=== PATIENT | female | born 1970 | race Caucasian/White ===

== ENCOUNTER → 2016-07-05 | Outpatient (CLI) | payer MEDICAID | LOC: BMCIMAGING 13:49 | PROVIDERS: ATTEND Family Medicine | DX: Z12.39 Encounter for other screening for malignant neoplasm of breast (principal); N63 Unspecified lump in breast; M54.9 Dorsalgia, unspecified; G89.4 Chronic pain syndrome; F33.41 Major depressive disorder, recurrent, in partial remission | CPT/HCPCS: G0204 ==

== ENCOUNTER → 2016-07-12 | Outpatient (CLI) | payer MEDICAID | LOC: FIMAGING 11:58 | PROVIDERS: ATTEND Family Medicine | DX: T85.49XA Other mechanical complication of breast prosthesis and implant, initial encounter (principal) | CPT/HCPCS: 0159T; 77059; C8907 ==

== ENCOUNTER → 2017-04-10 | Outpatient (CLI) | payer MEDICAID ==
[~2017-04-10] MED LIST: GADOBUTROL 10 ML VIAL IVP ONE
== END ==
LOC: FIMAGING 14:24
PROVIDERS: ATTEND Urology
DX: N75.0 Cyst of Bartholin's gland (principal)
CPT/HCPCS: A9585

== ENCOUNTER → 2017-04-12 | Outpatient (CLI) | payer MEDICAID | LOC: CIMAGING 13:00 | PROVIDERS: ATTEND Obstetrics & Gynecology | DX: N64.4 Mastodynia (principal) | CPT/HCPCS: 76641-PO ==

== ENCOUNTER 2017-09-25 19:44 | Emergency (ER) | payer MEDICAID ==
[2017-09-25] MEDS ORDERED: PENICILLIN VK 500 MG TAB PO ONE (20:10)
--- NOTE | 2017-09-25 20:42 | EDPHY ---
H & P Time Seen by Provider: 09/25/17 19:55 HPI/ROS: This patient complains of dental pain to the left upper premolar a 4 days duration increasing in intensity to current 8/10 despite ibuprofen Tylenol and maximal doses prior to arrival. She reports that the pain spreads from the affected dental area toward the ear and the left side of her face. She notes associated fatigue. She is also worried about easy bruising over the past couple months is concerned that she may have leukemia because of this and her fatigue and nausea and she requests a CBC. She came here by private vehicle for evaluation of the symptoms. ROS: Constitutional: No fevers. Positive generalized fatigue. HEENT: No URI symptoms. No facial swelling associated with this. No hearing changes or drainage from the ears. Neuro: No facial numbness or tingling. No confusion. She has had intermittent headaches recently but none currently. Pulmonary: No cough shortness of breath Hematology: Easy bruising for 6 months. : Last menstrual period was normal timing that she has had some mild vaginal spotting in between. Integumentary: No rashes. 10 point ROS is otherwise negative. Past Medical/Surgical History: Otherwise healthy Social History: She uses nicotine in the form of a vaporizer. No drug use No alcohol Single mother of a 12 an 8-year-old Smoking Status: Never smoked Physical Exam: General Appearance: Alert, no distress. Eyes: Pupils equal and round no pallor or injection. ENT, Mouth: Mucous membranes moist. Dental exam reveals tenderness to percussion to the left upper premolar with adjacent mild gingival swelling but no fluctuance. Overall her dentition appears to be in good condition. There is no submental swelling or other facial swelling. Ears: Clear bilaterally Respiratory: There are no retractions, lungs are clear to auscultation. Cardiovascular: Regular rate and rhythm. No murmur gallop or rub Gastrointestinal: Abdomen is soft and nontender, no masses, bowel sounds normal. Neurological: GCS 15 with no focal deficits. Skin: Warm and dry, no rashes. Patient has ecchymosis on her right leg consistent with bruising-subacute no other significant bruising is appreciated. Musculoskeletal: Neck is supple nontender. Extremities are symmetrical, full range of motion. Psychiatric: Mild anxiety. Otherwise mood and affect are normal DIFFERENTIAL DIAGNOSIS: After history and physical exam differential diagnosis was considered for periodontitis, apical abscess, bruising, rule out lymphoma leukemia or thrombocytopenia Constitutional: Initial Vital Signs Temperature (C) 36.6 C 09/25/17 19:52 Heart Rate 78 09/25/17 19:52 Respiratory Rate 18 09/25/17 19:52 Blood Pressure 135/75 H 09/25/17 19:52 O2 Sat (%) 97 09/25/17 19:52 O2 Delivery Mode Room Air Allergies/Adverse Reactions: Sulfa (Sulfonamide Antibiotics) Allergy (Unknown, Verified 01/21/09 17:59) Hives Home Medications: Medication Instructions Recorded Multivit 10/04/09 Prilosec 10/09/10 Levothyroxine [Synthroid 25 mcg 25 mcg PO DAILY 01/14/12 (RX)] Meclizine HCl [ANTIVERT] 25 mg PO Q6 PRN #10 tab 01/14/12 Venlafaxine HCl [Effexor] 25 mg PO DAILY 01/14/12 Penicillin V Potassium [Pen Vk 500 mg PO TID #30 tab 09/25/17 500mg (*)] MDM/Departure - MDM Procedures: Dental nerve block: After verbal consent and peroxide cleaning I injected a 50 50 mix of 2% lidocaine and 0.5% Marcaine with a 27 gauge needle to the buccal gingival fold intraorally adjacent to the affected tooth with relief of discomfort -3 mL. There were no complications. Patient tolerated this well. ED Course/Re-evaluation: Labs: CBC reveals a white blood cell count of 10.6, H&H of 13 and 41 and platelets of 335. I think the patient's CBC is commensurate with her periodontitis currently. I do not suspect of lumbar leukemia in this patient based on clinical findings and CBC at this time. - Depart Disposition: Home, Routine, Self-Care Clinical Impression: Periodontitis, Easy bruising Clinical Impression: (Ruled Out): Bruising Condition: Good Instructions: Toothache (ED) Additional Instructions: Diagnoses: 1. Dental pain/periodontitis 2. Easy bruising You're CBC tonight is consistent with mild dental infection. At this time it did not suspected leukemia or lymphoma. Plan: Continue ibuprofen Tylenol for pain Penicillin antibiotic 3 times a day as prescribed Call your dentist arrange follow-up for further evaluation for sometime within the next 3-10 days. Follow up with Dr. Lantigua for any ongoing symptoms Prescriptions: Penicillin V Potassium [Pen Vk 500mg (*)] 500 mg PO TID #30 tab Referrals: Matilde Lantigua MD [Primary Care Provider] - As per Instructions
[2017-09-25 21:09] VITALS: BP 122/62
== END 2017-09-25 21:06 | disposition home or self-care (01) ==
LOC: CED 19:44
PROC: 3E0X3BZ Introduction of Anesthetic Agent into Cranial Nerves, Percutaneous Approach (ICD-10-PCS; principal; 2017-09-25)
DX: K05.6 Periodontal disease, unspecified (principal)

== ENCOUNTER 2017-10-08 16:57 | Inpatient (IN) | payer MEDICAID ==
--- NOTE | 2017-10-08 17:08 | EDPHY ---
H & P Stated Complaint: abd/flank pain Time Seen by Provider: 10/08/17 17:07 HPI/ROS: CHIEF COMPLAINT: Abdominal pain, dyspnea, dark urine HISTORY OF PRESENT ILLNESS: The patient presents to the ED with abdominal pain , dyspnea and hematuria. The patient reported she developed epigastric pain last night which radiated to her back. She had nausea without vomiting. Her pain persisted throughout the day and she reports she has developed dark urine. She denies any antecedent dysuria, fever or respiratory symptoms. She has no history of asymmetric calf pain or swelling. The patient has no history of nephro or ureterolithiasis. The patient reports her pain is moderate in nature. It is primarily in her epigastrium and right upper quadrant. REVIEW OF SYSTEMS: A comprehensive 10 point review of systems is otherwise negative aside from elements mentioned in the history of present illness. Source: Patient - Personal History LMP (Females 10-55): 15-21 Days Ago Current Tetanus/Diphtheria Vaccine: No Current Tetanus Diphtheria and Acellular Pertussis (TDAP): No - Medical/Surgical History Hx Asthma: No Hx Chronic Respiratory Disease: No Hx Diabetes: No Hx Cardiac Disease: No Hx Renal Disease: No Hx Cirrhosis: No Hx Alcoholism: No Hx HIV/AIDS: No Hx Splenectomy or Spleen Trauma: No Other PMH: Urethra gland removed, - Social History Smoking Status: Former smoker - Physical Exam Exam: General Appearance: Alert, uncomfortable secondary to pain Eyes: Pupils equal and round no pallor or injection ENT, Mouth: Mucous membranes moist Respiratory: There are no retractions, lungs are clear to auscultation Cardiovascular: Regular rate and rhythm Gastrointestinal: Tenderness to palpation right upper quadrant, right CVA tenderness, normal bowel sounds Neurological: 5/5 strength all 4 extremities Skin: Warm and dry, no rashes Musculoskeletal: Neck is supple nontender Extremities: symmetrical, full range of motion Psychiatric: Patient is oriented X 3, there is no agitation Constitutional: Initial Vital Signs Temperature (C) 36.9 C 10/08/17 17:02 Heart Rate 115 H 10/08/17 17:02 Respiratory Rate 16 10/08/17 17:02 Blood Pressure 136/75 H 10/08/17 17:02 O2 Sat (%) 96 10/08/17 17:02 O2 Delivery Mode Oxymizer O2 (L/minute) 2 Allergies/Adverse Reactions: Sulfa (Sulfonamide Antibiotics) Allergy (Unknown, Verified 10/08/17 17:01) Hives Home Medications: Medication Instructions Recorded ALPRAZolam [Alprazolam] 1 mg PO TID 10/08/17 Escitalopram Oxalate [Lexapro] 20 mg PO DAILY 10/08/17 Hydrocodone/Acetaminophen [[place] 1 - 2 tab PO Q4H PRN 10/08/17 5/325 (*)] Levothyroxine [Synthroid 100 mcg 100 mcg PO DAILY06 10/08/17 (*)] Naloxone HCl [Narcan] 4 mg NS AD 10/08/17 Norgestimate-Ethinyl Estradiol 1 each PO DAILY 10/08/17 [Sprintec] Omeprazole 20 mg PO DAILY 10/08/17 Propranolol HCl [Inderal 20mg (*)] 20 mg PO TID 10/08/17 Sucralfate [Carafate 1gm/10ml Oral 1 gm PO QID 10/08/17 Liquid (*)] oxyCODONE IR [Oxycodone Ir (*)] 7.5 mg PO QID 10/08/17 oxyCODONE IR [Oxycodone Ir (*)] 15 mg PO BID 10/08/17 oxyCODONE IR [Oxycodone Ir (*)] 20 mg PO Q6H 10/08/17 traZODone [traZODONE 50MG (*)] 50 - 100 mg PO HS 10/08/17 Medical Decision Making - Diagnostics Imaging Results: Imaging Impressions Abdomen Ultrasound 10/08/17 17:32 Impression: 1. Mild coarsening of the hepatic echotexture, which is nonspecific and could be related to some regional steatosis, or hepatocellular dysfunction of other etiology. 2. While there is no intrahepatic bile duct dilatation, there is mild prominence of the common bile duct, of uncertain etiology. There is no choledocholithiasis observed. 3. There is a nonspecific 1.6 cm peripancreatic-joe hepatis lymph node. Contrast-enhanced CT imaging may be of benefit in further evaluation, as clinically directed. Findings were discussed with Hilario Amaral MD at 18:40, on 10/08/2017. ED Course/Re-evaluation: The patient presents to the ED with acute back pain, hematuria and mild dyspnea. The patient was placed on a monitor. She is not hypoxic and is noted to be hemodynamically stable. An IV was established. She received 1 L of normal saline, Zofran and IV fentanyl. The patient is noted to have elevated bilirubin and a transaminitis. Right upper quadrant ultrasound demonstrates a dilated common bile duct. Consultation is made with Dr. Vallecillo from General surgery. The patient will be admitted for choledocholithiasis. She received Unasyn in the emergency department. I re-evaluated the patient at 6:30 p.m.. She is still having pain. Additional pain medications have been ordered. She informs me she has been on a fairly high dose of outpatient narcotic medications for chronic pain and is in the process of weaning those medications. The patient was given Toradol an additional dose of Dilaudid. She will be admitted to the surgical service this evening for further evaluation of her condition. Differential Diagnosis: Differential diagnosis considered includes cholecystitis, choledocholithiasis, nephrolithiasis, ureterolithiasis, pyelonephritis - Data Points Laboratory Results: Laboratory Results 10/08/17 17:25 10/08/17 17:25 10/08/17 10/08/17 10/08/17 17:25 17:25 17:25 WBC 13.10 10^3/uL H 10^3/uL (3.80-9.50) RBC 5.02 10^6/uL 10^6/uL (4.18-5.33) Hgb 14.5 g/dL g/dL (12.6-16.3) Hct 43.2 % % (38.0-47.0) MCV 86.1 fL fL (81.5-99.8) MCH 28.9 pg pg (27.9-34.1) MCHC 33.6 g/dL g/dL (32.4-36.7) RDW 13.2 % % (11.5-15.2) Plt Count 349 10^3/uL 10^3/uL (150-400) MPV 10.2 fL fL (8.7-11.7) Neut % (Auto) 82.1 % H % (39.3-74.2) Lymph % (Auto) 11.0 % L % (15.0-45.0) [place] % (Auto) 5.4 % % (4.5-13.0) Eos % (Auto) 0.8 % % (0.6-7.6) Baso % (Auto) 0.2 % L % (0.3-1.7) Nucleat RBC Rel Count 0.0 % % (0.0-0.2) Absolute Neuts (auto) 10.77 10^3/uL H 10^3/uL (1.70-6.50) Absolute Lymphs (auto) 1.44 10^3/uL 10^3/uL (1.00-3.00) Absolute Monos (auto) 0.71 10^3/uL 10^3/uL (0.30-0.80) Absolute Eos (auto) 0.10 10^3/uL 10^3/uL (0.03-0.40) Absolute Basos (auto) 0.02 10^3/uL 10^3/uL (0.02-0.10) Absolute Nucleated RBC 0.00 10^3/uL 10^3/uL (0-0.01) Immature Gran % 0.5 % % (0.0-1.1) Immature Gran # 0.06 10^3/uL 10^3/uL (0.00-0.10) Sodium 136 mEq/L mEq/L (135-145) Potassium 4.2 mEq/L mEq/L (3.3-5.0) Chloride 103 mEq/L mEq/L (97-110) Carbon Dioxide 24 mEq/l mEq/l (22-31) Anion Gap 9 mEq/L mEq/L (8-16) BUN 14 mg/dL mg/dL (7-23) Creatinine 0.8 mg/dL mg/dL (0.6-1.0) Estimated GFR > 60 Glucose 133 mg/dL H mg/dL (70-100) Calcium 10.0 mg/dL mg/dL (8.5-10.4) Total Bilirubin 5.1 mg/dL H mg/dL (0.1-1.4) Conjugated Bilirubin 3.0 mg/dL H mg/dL (0.0-0.5) Unconjugated Bilirubin 2.1 mg/dL H mg/dL (0.0-1.1) AST 319 IU/L H IU/L (14-46) ALT 220 IU/L H IU/L (9-52) Alkaline Phosphatase 154 IU/L H IU/L (38-126) Total Protein 7.9 g/dL g/dL (6.3-8.2) Albumin 4.5 g/dL g/dL (3.5-5.0) Lipase 58 IU/L IU/L (23-300) Beta HCG, Qual NEGATIVE Urine Color Urine Appearance Urine pH Ur Specific [place] Urine Protein Urine Ketones Urine Blood Urine Nitrate Urine Bilirubin Urine Urobilinogen Ur Leukocyte Esterase Urine RBC Urine WBC Ur Epithelial Cells Urine Mucus Urine Glucose 10/08/17 17:10 WBC RBC Hgb Hct MCV MCH MCHC RDW Plt Count MPV Neut % (Auto) Lymph % (Auto) [place] % (Auto) Eos % (Auto) Baso % (Auto) Nucleat RBC Rel Count Absolute Neuts (auto) Absolute Lymphs (auto) Absolute Monos (auto) Absolute Eos (auto) Absolute Basos (auto) Absolute Nucleated RBC Immature Gran % Immature Gran # Sodium Potassium Chloride Carbon Dioxide Anion Gap BUN Creatinine Estimated GFR Glucose Calcium Total Bilirubin Conjugated Bilirubin Unconjugated Bilirubin AST ALT Alkaline Phosphatase Total Protein Albumin Lipase Beta HCG, Qual Urine Color ORA Urine Appearance CLEAR Urine pH 6.0 (5.0-7.5) Ur Specific [place] 1.016 (1.002-1.030) Urine Protein NEGATIVE (NEGATIVE) Urine Ketones NEGATIVE (NEGATIVE) Urine Blood 1+ H (NEGATIVE) Urine Nitrate NEGATIVE (NEGATIVE) Urine Bilirubin POSITIVE H (NEGATIVE) Urine Urobilinogen 4.0 EU H EU (0.2-1.0) Ur Leukocyte Esterase TRACE H (NEGATIVE) Urine RBC 5-10 /hpf H /hpf (0-3) Urine WBC 3-5 /hpf H /hpf (0-3) Ur Epithelial Cells 2+ /lpf H /lpf (NONE-1+) Urine Mucus TRACE /lpf /lpf (NONE-1+) Urine Glucose NEGATIVE (NEGATIVE) Medications Given: Discontinued Medications Fentanyl (Sublimaze) 100 mcg IVP EDNOW ONE Stop: 10/08/17 17:24 Last Admin: 10/08/17 17:33 Dose: 100 mcg Hydromorphone HCl (Dilaudid) 1 mg IVP EDNOW ONE Stop: 10/08/17 18:41 Last Admin: 10/08/17 18:43 Dose: 1 mg Sodium Chloride (Ns) 1,000 mls @ 0 mls/hr IV EDNOW ONE; Wide Open PRN Reason: Protocol Stop: 10/08/17 17:24 Last Admin: 10/08/17 17:32 Dose: 1,000 mls Ondansetron HCl (Zofran) 4 mg IVP EDNOW ONE Stop: 10/08/17 17:24 Last Admin: 10/08/17 17:33 Dose: 4 mg Departure - Departure Disposition: [facility] Clinical Impression: Choledocholithiasis Condition: Fair
[2017-10-08] MEDS ORDERED: fentaNYL 100 MCG/2 ML INJ IVP ONE (17:23)
[2017-10-08] MEDS ORDERED: NS 1,000 ML IV ONE (17:23)
[2017-10-08] MEDS ORDERED: ONDANSETRON 4 MG/2 ML VIAL IVP ONE (17:23)
[2017-10-08 17:40] LABS: PLATELET COUNT 349 10^3/uL (150-400)
[2017-10-08] MEDS ORDERED: AMPICILLIN/SULBACTAM 3 GM in NS 100 ML IV ONE (18:32)
[2017-10-08] MEDS ORDERED: HYDROmorphONE/DILAUDID 2 MG/ML INJ IVP ONE (18:40)
[2017-10-08] MEDS ORDERED: KETOROLAC 15 MG/1 ML SDV IVP ONE (18:45)
[2017-10-08] MEDS ORDERED: ONDANSETRON 4 MG/2 ML VIAL IVP PRN (19:20)
[2017-10-08] MEDS ORDERED: TEMAZEPAM 15 MG CAP PO PRN (19:20)
--- NOTE | 2017-10-08 19:28 | PDGENHP ---
History and Physical - Chief Complaint Abdominal pain - History of Present Illness This is a 47-year-old woman with history of chronic pain on 110 mg of oxycodone daily who presents with epigastric pain radiating to the back. This began at 11 o'clock suddenly last night. She was unable to find a comfortable position the pain then radiated straight through toward her back. She was unable to take deep breaths due to the pain. She then dark urine consistent with urobilia. She presented to the emergency room for evaluation and management . Ultrasound of the abdomen and pelvis showed a 7.4 mm common bile duct but minimal burden of stone disease. Laboratory studies showed elevation of bilirubin direct indirect and total as well as elevation of transaminases and alkaline phosphatase. Lipase was normal. Beta HCG was also normal. Given her clinical picture this is most likely consistent with choledocholithiasis History Information - Allergies/Home Medication List Allergies/Adverse Reactions: Sulfa (Sulfonamide Antibiotics) Allergy (Unknown, Verified 10/08/17 19:12) Hives Home Medications: ALPRAZolam [Alprazolam] 1 mg PO TID PRN 10/08/17 [Last Taken Unknown] Escitalopram Oxalate [Lexapro] 20 mg PO DAILY 10/08/17 [Last Taken 10/07/17] Lactobacillus Acidophilus [Probiotic] 1 each PO DAILY 10/08/17 [Last Taken 10/07] Multivitamins [Multivitamin (*)] 1 each PO DAILY 10/08/17 [Last Taken 10/07/17] [place]-3 Fatty Acids [Fish Oil 1000 mg (*)] 1,000 mg PO DAILY 10/08/17 [Last Taken 10/07/17] Vitamin B Complex [Vitamin B Complex (OTC)] 1 each PO DAILY 10/08/17 [Last Taken 10/07/17] oxyCODONE IR [Oxycodone Ir (*)] 7.5 mg PO QID 10/08/17 [Last Taken 10/07/17] oxyCODONE IR [Oxycodone Ir (*)] 20 mg PO QID 10/08/17 [Last Taken 10/07/17] traZODone [traZODONE 50MG (*)] 50 mg PO HS 10/08/17 [Last Taken 10/07/17] I have personally reviewed and updated: family history, medical history, social history, surgical history - Past Medical History fibromyalgia - Surgical History Additional surgical history: Tubal ligation. Colonoscopy and upper endoscopy last week.Skein cystectomy - Family History Positive for: non-pertinent - Social History Smoking Status: Former smoker Review of Systems Review of Systems: ROS: 10pt was reviewed & negative except for what was stated in HPI & below Constitutional: Reports: malaise EENMT: Reports: no symptoms Cardiac: Reports: no symptoms Respiratory: Reports: no symptoms Gastrointestinal: Reports: abdominal pain, constipation Genitourinary: Reports: dysuria Skin: Reports: change in hair/nails Neurological: Reports: anxiety Hematologic/Lymphatic: Reports: easy bruising Physical Exam Physical Exam: Alert oriented In abdominal pain with distress from this. Sclerae anicteric pupils equal No JVD no thyromegaly trachea midline Lungs clear bilaterally Heart regular rate and rhythm Abdomen soft mildly distended. Mid epigastric tender. No peritoneal signs. infraumbilical scar. no hepatosplenomegaly Extremities without edema 2+ over 2+ distal pulses Skin warm and dry No rashes Normal affect Nonfocal neurologic exam Temp Pulse Resp BP Pulse Ox 36.6 C 67 15 100/59 L 98 10/08/17 18:00 10/08/17 18:00 10/08/17 18:00 10/08/17 18:00 10/08/17 18:14 Lab Data & Imaging Review 10/08/17 17:25 10/08/17 17:25 WBC 13.10 10^3/uL (3.80-9.50) H 10/08/17 17:25 RBC 5.02 10^6/uL (4.18-5.33) 10/08/17 17:25 Hgb 14.5 g/dL (12.6-16.3) 10/08/17 17:25 Hct 43.2 % (38.0-47.0) 10/08/17 17:25 MCV 86.1 fL (81.5-99.8) 10/08/17 17:25 MCH 28.9 pg (27.9-34.1) 10/08/17 17:25 MCHC 33.6 g/dL (32.4-36.7) 10/08/17 17:25 RDW 13.2 % (11.5-15.2) 10/08/17 17:25 Plt Count 349 10^3/uL (150-400) 10/08/17 17:25 MPV 10.2 fL (8.7-11.7) 10/08/17 17:25 Neut % (Auto) 82.1 % (39.3-74.2) H 10/08/17 17:25 Lymph % (Auto) 11.0 % (15.0-45.0) L 10/08/17 17:25 [place] % (Auto) 5.4 % (4.5-13.0) 10/08/17 17:25 Eos % (Auto) 0.8 % (0.6-7.6) 10/08/17 17:25 Baso % (Auto) 0.2 % (0.3-1.7) L 10/08/17 17:25 Nucleat RBC Rel Count 0.0 % (0.0-0.2) 10/08/17 17:25 Absolute Neuts (auto) 10.77 10^3/uL (1.70-6.50) H 10/08/17 17:25 Absolute Lymphs (auto) 1.44 10^3/uL (1.00-3.00) 10/08/17 17:25 Absolute Monos (auto) 0.71 10^3/uL (0.30-0.80) 10/08/17 17:25 Absolute Eos (auto) 0.10 10^3/uL (0.03-0.40) 10/08/17 17:25 Absolute Basos (auto) 0.02 10^3/uL (0.02-0.10) 10/08/17 17:25 Absolute Nucleated RBC 0.00 10^3/uL (0-0.01) 10/08/17 17:25 Immature Gran % 0.5 % (0.0-1.1) 10/08/17 17:25 Immature Gran # 0.06 10^3/uL (0.00-0.10) 10/08/17 17:25 Sodium 136 mEq/L (135-145) 10/08/17 17:25 Potassium 4.2 mEq/L (3.3-5.0) 10/08/17 17:25 Chloride 103 mEq/L (97-110) 10/08/17 17:25 Carbon Dioxide 24 mEq/l (22-31) 10/08/17 17:25 Anion Gap 9 mEq/L (8-16) 10/08/17 17:25 BUN 14 mg/dL (7-23) 10/08/17 17:25 Creatinine 0.8 mg/dL (0.6-1.0) 10/08/17 17:25 Estimated GFR > 60 10/08/17 17:25 Glucose 133 mg/dL (70-100) H 10/08/17 17:25 Calcium 10.0 mg/dL (8.5-10.4) 10/08/17 17:25 Total Bilirubin 5.1 mg/dL (0.1-1.4) H 10/08/17 17:25 Conjugated Bilirubin 3.0 mg/dL (0.0-0.5) H 10/08/17 17:25 Unconjugated Bilirubin 2.1 mg/dL (0.0-1.1) H 10/08/17 17:25 AST 319 IU/L (14-46) H 10/08/17 17:25 ALT 220 IU/L (9-52) H 10/08/17 17:25 Alkaline Phosphatase 154 IU/L (38-126) H 10/08/17 17:25 Total Protein 7.9 g/dL (6.3-8.2) 10/08/17 17:25 Albumin 4.5 g/dL (3.5-5.0) 10/08/17 17:25 Lipase 58 IU/L (23-300) 10/08/17 17:25 Beta HCG, Qual NEGATIVE 10/08/17 17:25 Urine Color ORA 10/08/17 17:10 Urine Appearance CLEAR 10/08/17 17:10 Urine pH 6.0 (5.0-7.5) 10/08/17 17:10 Ur Specific [place] 1.016 (1.002-1.030) 10/08/17 17:10 Urine Protein NEGATIVE (NEGATIVE) 10/08/17 17:10 Urine Ketones NEGATIVE (NEGATIVE) 10/08/17 17:10 Urine Blood 1+ (NEGATIVE) H 10/08/17 17:10 Urine Nitrate NEGATIVE (NEGATIVE) 10/08/17 17:10 Urine Bilirubin POSITIVE (NEGATIVE) H 10/08/17 17:10 Urine Urobilinogen 4.0 EU (0.2-1.0) H 10/08/17 17:10 Ur Leukocyte Esterase TRACE (NEGATIVE) H 10/08/17 17:10 Urine RBC 5-10 /hpf (0-3) H 10/08/17 17:10 Urine WBC 3-5 /hpf (0-3) H 10/08/17 17:10 Ur Epithelial Cells 2+ /lpf (NONE-1+) H 10/08/17 17:10 Urine Mucus TRACE /lpf (NONE-1+) 10/08/17 17:10 Urine Glucose NEGATIVE (NEGATIVE) 10/08/17 17:10 Imaging Review: Imaging Impressions Abdomen Ultrasound 10/08/17 17:32 Impression: 1. Mild coarsening of the hepatic echotexture, which is nonspecific and could be related to some regional steatosis, or hepatocellular dysfunction of other etiology. 2. While there is no intrahepatic bile duct dilatation, there is mild prominence of the common bile duct, of uncertain etiology. There is no choledocholithiasis observed. 3. There is a nonspecific 1.6 cm peripancreatic-joe hepatis lymph node. Contrast-enhanced CT imaging may be of benefit in further evaluation, as clinically directed. Findings were discussed with Hilario Amaral MD at 18:40, on 10/08/2017. Assessment & Plan Assessment: Choledocholithiasis (Acute) Plan: Admit to the hospital. Clear liquids tonight NPO after midnight. Re-evaluate with laboratory studies in the morning and clinical exam. If her transaminases stay elevated and she has persistent signs of choledocholithiasis GI consultation and possible endoscopic retrograde cholangiopancreatogram will be requested. If her numbers trend to normal we will plan on laparoscopic cholecystectomy with intraoperative cholangiogram. The risks benefits and alternatives surgery been outlined clearly with the patient. Patient also has chronic pain which will need to be addressed. She is on 110 mg of oxycodone daily which have been restarted. We will continue with treating her pain with nonsteroidal anti-inflammatories. She has been informed of the fact her pain will not be completely controlled with current medications we are giving her. If the medication will take the edge off the pain but she should anticipate some discomfort. The patient verbalized understanding. We will reassess her in the morning.
[2017-10-08] MEDS ORDERED: HYDROmorphONE/DILAUDID 1 MG/ML INJ IVP ONE (19:57)
[2017-10-08] MEDS: oxyCODONE IR 5 MG TAB PO SCH (21:28)
[2017-10-08] MEDS: oxyCODONE IR 15 MG TAB PO SCH (21:29)
[2017-10-08] MEDS: KETOROLAC 15 MG/1 ML SDV IVP SCH (23:33)
[2017-10-08] MEDS: traZODone 50 MG TAB PO SCH (23:39)
[2017-10-08] MEDS: NS 1,000 ML IV SCH (23:40)
[2017-10-09] MEDS: ALPRAZolam 1 MG TAB PO PRN ×2 (02:18→10:13)
[2017-10-09] MEDS: HYDROmorphONE/DILAUDID 1 MG/ML INJ IVP PRN ×4 (02:44→14:20)
[2017-10-09] MEDS: oxyCODONE IR 5 MG TAB PO SCH ×4 (06:09→20:09)
[2017-10-09] MEDS: oxyCODONE IR 15 MG TAB PO SCH ×4 (06:10→20:09)
[2017-10-09] MEDS: KETOROLAC 15 MG/1 ML SDV IVP SCH ×4 (06:11→23:44)
[2017-10-09] MEDS: NS 1,000 ML IV SCH (08:03)
--- NOTE | 2017-10-09 09:14 | PDMN ---
Medical Necessity Medical necessity: Pt meets IP criteria per MD; est los >2 mn for choledocholithiasis; requiring NPO status, followup labs, IVFs (125 mls/hr), IV pain meds & GI consult w/possible intervention; per H&P & order 10/08/17
--- NOTE | 2017-10-09 11:32 | ASMTCASEMG ---
Living Arrangements What is your living Answers: With Spouse arrangement? Who do you live with? Type Of Residence What kind of residence do Answers: House you live in? Discharge Plan Comments Coordination Status Comments Notes: Pt is a 47 y/o female admitted for abdominal pain. Referral made to [facility]. Pt will most likely d/c without any needs when medically stable. No therapies ordered at this time. CM available for changes. Plan: Independent Date Signed: 10/09/2017 11:32 AM Electronically Signed By:TROY Marin
[2017-10-09] MEDS ORDERED: LR 1,000 ML IV ONE (11:44)
[2017-10-09] MEDS ORDERED: LIDOCAINE 1% 300 MG/30 ML SDV ONE (11:49)
[2017-10-09] MEDS ORDERED: BUPIVACAINE 0.25% 30 ML SDV ONE (11:49)
[2017-10-09] MEDS ORDERED: IOTHALAMATE MEG (CONRAY) 50 ML VIAL IV ONE (11:49)
[2017-10-09] MEDS ORDERED: MIDAZOLAM 2 MG/2 ML VIAL IVP ONE (11:59)
--- NOTE | 2017-10-09 11:59 | PDANEPAE ---
ANE History of Present Illness cholelithiasis here for lap robert ANE Past Medical History - Cardiovascular History Hx Hypertension: No Hx Coronary Artery / Peripheral Vascular Disease: Yes Cardiovascular History Comment: MVP - Pulmonary History Hx COPD: No Hx Asthma/Reactive Airway Disease: No Hx Oxygen in Use at Home: No Hx Sleep Apnea: No Sleep Apnea Screening Result - Last Documented: Negative - Endocrine History Hx Diabetes: No - Neurological & Psychiatric Hx Hx Neurological and Psychiatric Disorders: Yes Neurological / Psychiatric History Comment: anxiety/depression - Chronic Pain History Chronic Pain: Yes ANE Review of Systems Review of Systems: - Exercise capacity Exercise capacity: >=4 METS ANE Patient History - Allergies Allergies/Adverse Reactions: Sulfa (Sulfonamide Antibiotics) Allergy (Unknown, Verified 10/08/17 19:12) Hives - Home Medications Home Medications: ALPRAZolam [Alprazolam] 1 mg PO TID PRN 10/08/17 [Last Taken Unknown] Escitalopram Oxalate [Lexapro] 20 mg PO DAILY 10/08/17 [Last Taken 10/07/17] Lactobacillus Acidophilus [Probiotic] 1 each PO DAILY 10/08/17 [Last Taken 10/07] Multivitamins [Multivitamin (*)] 1 each PO DAILY 10/08/17 [Last Taken 10/07/17] [place]-3 Fatty Acids [Fish Oil 1000 mg (*)] 1,000 mg PO DAILY 10/08/17 [Last Taken 10/07/17] Vitamin B Complex [Vitamin B Complex (OTC)] 1 each PO DAILY 10/08/17 [Last Taken 10/07/17] oxyCODONE IR [Oxycodone Ir (*)] 7.5 mg PO QID 10/08/17 [Last Taken 10/07/17] oxyCODONE IR [Oxycodone Ir (*)] 20 mg PO QID 10/08/17 [Last Taken 10/07/17] traZODone [traZODONE 50MG (*)] 50 mg PO HS 10/08/17 [Last Taken 10/07/17] - NPO status NPO Status: no food or drink >8 hours NPO Since - Liquids (Date): 10/09/17 NPO Since - Liquids (Time): 00:00 NPO Since - Solids (Date): 10/09/17 NPO Since - Solids (Time): 00:00 - Anes Hx Anes Hx: no prior problems - Smoking Hx Smoking Status: Former smoker - Alcohol Use Alcohol Use: None - Family Anes Hx Family Anes Hx: none ANE Labs/Vital Signs - Labs Result Diagrams: 10/08/17 17:25 10/09/17 05:20 - Vital Signs Blood Pressure: 91/58 Heart Rate: 59 Respiratory Rate: 12 O2 Sat (%): 97 Height: 165.1 cm Weight: 66.224 kg ANE Physical Exam - Airway Neck exam: FROM Mallampati Score: Class 2 Mouth exam: normal dental/mouth exam - Pulmonary Pulmonary: no respiratory distress, clear to auscultation - Cardiovascular Cardiovascular: regular rate and rhythym, no murmur, rub, or gallop - ASA Status ASA Status: II ANE Anesthesia Plan Anesthesia Plan: general endotracheal anesthesia
[2017-10-09] MEDS ORDERED: PROPOFOL 200 MG/20 ML VIAL ONE (12:08)
[2017-10-09] MEDS ORDERED: fentaNYL 100 MCG/2 ML INJ ONE ×2 (12:08→13:52)
[2017-10-09] MEDS ORDERED: LIDOCAINE 2% 100 MG/5 ML SYR ONE (12:09)
[2017-10-09] MEDS ORDERED: ROCURONIUM 50 MG/5 ML VIAL ONE (12:09)
--- NOTE | 2017-10-09 12:28 | SOAPPROG ---
SOAP Progress Note Assessment/Plan: Assessment/Plan: 47 yo with choledocholithiasis transaminases and bilirubin trending down Pain well controlled with medication NPO for lap robert with gram extensive question addressed. 10/09/17 12:27 Objective: Vital Signs Temp Pulse Resp BP Pulse Ox 36.9 C 59 L 12 91/58 L 97 10/09/17 11:41 10/09/17 11:59 10/09/17 11:59 10/09/17 11:59 10/09/17 11:59 Laboratory Results 10/09/17 05:20 10/08/17 10/09/17 10/10/17 05:59 05:59 05:59 Intake Total 1000 Balance 1000 ICD10 Worksheet Patient Problems: Problems Problem Status Onset Choledocholithiasis Acute
--- NOTE | 2017-10-09 12:31 | POSTOPPROG ---
Post Op Note Date of Operation: 10/09/17 Surgeon: Lefty Vallecillo Anesthesiologist: Lesa Anesthesia: GET(General Endotracheal) Pre-op Diagnosis: choledocholithiasis Post-op Diagnosis: same Procedure: lap robert with gram Findings: No cbd stone Inf/Abcess present in the surg proc area at time of surgery?: No EBL: 50-100 Specimen(s): gallbladder
[2017-10-09] MEDS ORDERED: HYDROmorphONE/DILAUDID 2 MG/ML INJ ONE (12:51)
[2017-10-09] MEDS ORDERED: DEXAMETHASONE 4 MG/ML VIAL ONE (12:52)
[2017-10-09] MEDS ORDERED: ONDANSETRON 4 MG/2 ML VIAL ONE (12:52)
[2017-10-09] MEDS ORDERED: KETAMINE 500 MG/10 ML VIAL ONE (12:59)
[2017-10-09] MEDS ORDERED: PROMETHAZINE HCL 25 MG/ML INJ IVP PRN (13:43)
[2017-10-09] MEDS ORDERED: oxyCODONE IR 5 MG TAB PO PRN (13:43)
[2017-10-09] MEDS ORDERED: DIAZEPAM 5 MG/ML 1 ML SYR IVP PRN (13:43)
[2017-10-09] MEDS ORDERED: ONDANSETRON 4 MG/2 ML VIAL IVP PRN (13:43)
[2017-10-09] MEDS ORDERED: NALOXONE HCL 0.4 MG/ML INJ IVP PRN (13:43)
[2017-10-09] MEDS ORDERED: HYDROmorphONE/DILAUDID 1 MG/ML INJ IVP PRN (13:43)
--- NOTE | 2017-10-09 13:48 | POSTANESTH ---
Post Anesthetic Evaluation Cardiovascular Status: Normal, Stable, Similar to Pre-Op Cond Respiratory Status: Normal, Stable, Similar to Pre-op Cond. Level of Consciousness/Mental Status: Can Participate in Eval, Alert and Oriented Pain Control: Adequate, Prn Tx Ordered Nausea/Vomiting Control: Adequate, Prn Tx Ordered Complications Possibly Related to Anesthesia: None Noted
[2017-10-09] MEDS: fentaNYL 100 MCG/2 ML INJ IVP PRN ×2 (13:57→14:10)
[2017-10-09] MEDS ORDERED: HYDROmorphONE/DILAUDID 1 MG/ML INJ ONE (14:17)
[2017-10-09] MEDS ORDERED: oxyCODONE IR 5 MG TAB ONE (14:43)
[2017-10-09] MEDS ORDERED: DIAZEPAM 5 MG/ML 1 ML SYR ONE (14:43)
[2017-10-09] MEDS: oxyCODONE IR 5 MG TAB PO PRN ×2 (15:21→20:32)
[2017-10-09] MEDS: traZODone 50 MG TAB PO SCH (21:19)
[2017-10-10] MEDS: oxyCODONE IR 15 MG TAB PO SCH ×4 (00:01→17:31)
[2017-10-10] MEDS: oxyCODONE IR 5 MG TAB PO SCH ×4 (00:02→17:31)
[2017-10-10] MEDS: oxyCODONE IR 5 MG TAB PO PRN ×2 (00:37→17:31)
[2017-10-10] MEDS: traZODone 50 MG TAB PO SCH (02:34)
[2017-10-10] MEDS: ALPRAZolam 1 MG TAB PO PRN ×2 (02:34→08:52)
[2017-10-10] MEDS: HYDROmorphONE/DILAUDID 1 MG/ML INJ IVP PRN (02:47)
[2017-10-10] MEDS: KETOROLAC 15 MG/1 ML SDV IVP SCH ×2 (05:59→12:48)
[2017-10-10 12:27] VITALS: BP 131/74
--- NOTE | 2017-10-10 15:45 | GOP ---
[f rep st] OPERATIVE REPORT DATE OF OPERATION: 10/09/2017 SURGEON: Lefty Vallecillo MD ANESTHESIOLOGIST: Dr. Patrick Mcfadden. PREOPERATIVE DIAGNOSIS: Choledocholithiasis, cholecystitis. POSTOPERATIVE DIAGNOSIS: Choledocholithiasis, cholecystitis. PROCEDURE PERFORMED: Laparoscopic cholecystectomy with intraoperative cholangiogram. FINDINGS: Normal cholangiogram with easy filling of the intra and extrahepatic biliary trees. No fi lling defects. Spill into the duodenum without difficulty. SPECIMENS: Gallbladder to permanent pathology. DESCRIPTION OF PROCEDURE: Patient was brought to the operating room. After induction of endotrachea l anesthesia in a supine position, her abdomen was prepped with chlorhexidine and draped sterilely. Time-out procedure was performed according to institutional standards. Local anesthetic was infused in skin and subcutaneous tissues of the trocar site. An open supraumbilical trocar placement was done in the standard fashion. The abdomen was insufflate d to 15 TOR with carbon dioxide. Working trocars were placed in the subxiphoid and right subcostal a reas under direct visual visualization. The gallbladder was brought to the field of dissection. The re were adhesions to the duodenum and omentum. These were taken down with blunt and sharp dissection , as well as judicious use of electrocautery. The cystic duct and cystic artery were identified in the triangle of [place]. The cystic artery was tr iply clipped and ligated. The cystic duct was clipped, and a cholangiogram catheter was placed into the cystic duct and secured. A cholangiogram was done under fluoroscopy, which shows a good filling of the intra and extrahepatic biliary tree with spillage into the duodenum. No filling defect is not ed. Given these findings, a cholangiogram was completed and the catheter was removed. The cystic du ct was then triply clipped and ligated. The gallbladder was brought out from a somewhat intrahepatic position using electrocautery. Hemostas is was assured. The gallbladder was placed in the pouch and brought out through the umbilical incisi on. The abdomen was Irrigated and aspirated until clear. The working trocars were removed. The fascia w as reapproximated at the umbilicus using 0 Vicryl and all 4 ports were reapproximated using 4-0 Monoc ryl. Dermabond was applied. The patient awakened, extubated, taken to recovery in stable condition. There were no immediate complications. /[id number]/MODL
--- NOTE | 2017-10-10 15:45 | GDS ---
[f rep st] DISCHARGE SUMMARY This is a 47-year-old patient who presented with choledocholithiasis on 2017. PRINCIPAL PROCEDURE: Laparoscopic cholecystectomy with intraoperative cholangiogram. SECONDARY DIAGNOSES: Include chronic pain, depression, and fibromyalgia. PAST SURGICAL HISTORY: Includes colonoscopy, upper endoscopy, Satsuma's cystectomy, and tubal ligation. ALLERGIES: Sulfa. MEDICATIONS AT HOME: Xanax 1 mg t.i.d. p.r.n., Lexapro 20 mg daily, lactobacillus daily, multivitamins daily, omega-3 daily, vitamin B complex daily , oxycodone IR 7.5 mg q.i.d., and oxycodone IR 20 mg p.o. q.i.d., trazodone 50 mg p.o. q.h.s. ADDITIONAL MEDICATIONS ON DISCHARGE: Include oxycodone 10 mg p.o. q.4 hours p.r.n. for breakthrough pain. Discussed with Dr. Lantigua, her prescribing physician, who agrees with the dosage for short-term before next prescription for chronic pain. HOSPITAL COURSE: The patient was brought into the hospital for evaluation of choledocholithiasis. Elevated bilirubin to 5.1, went down to 3 after hospital day 1 without any intervention. Her transaminases which were in the 500s, also trended to normal and her alkaline phosphatase which was initially elevated at 140 also was normal on hospital day #1. Given the fact that her numbers were trending down, it appeared the choledocholithiasis had been resolved with time and cholecystectomy was proceeded upon. The patient tolerated the procedure well. She was tolerating diet, ambulatory, appeared to have good pain control. Current medication. She was discharged to home with instructions to call with any concerns regarding her surgery or hospitalization. The patient verbalized her understanding including restrictions for driving while taking narcotics, calls for inability to eat, pain not controlled by medication, recurrence of symptoms, or any signs of infection such as temperature greater than 101.5 or drainage or redness around the incision. The patient will be discharged to her own recognizance. She will follow up in 1 week in the office. /[id number]/MODL MTDD
== END 2017-10-10 17:49 | disposition home or self-care (01) | DRG 263 ==
LOC: F3E 20:19
PROVIDERS: ADMIT Surgery; ATTEND Surgery
PROC: BF101ZZ Fluoroscopy of Bile Ducts using Low Osmolar Contrast (ICD-10-PCS; principal; 2017-10-09 12:00)
PROC: 0FT44ZZ Resection of Gallbladder, Percutaneous Endoscopic Approach (ICD-10-PCS; principal; 2017-10-09 12:00)
DX: K80.44 Calculus of bile duct with chronic cholecystitis without obstruction (principal); G89.29 Other chronic pain; Z79.891 Long term (current) use of opiate analgesic; M79.7 Fibromyalgia; F32.9 Major depressive disorder, single episode, unspecified; I34.1 Nonrheumatic mitral (valve) prolapse; Z87.891 Personal history of nicotine dependence
CPT/HCPCS: 96365; J0295; J1100; J1170; J1885; J2001; J2250; J2405; J2704; J3010; J3360; Q9961

== ENCOUNTER 2017-12-18 12:22 | Emergency (ER) | payer MEDICAID ==
--- NOTE | 2017-12-18 13:36 | EDPHY ---
H & P Stated Complaint: hip pain/ lump on back Time Seen by Provider: 12/18/17 12:37 HPI/ROS: Chief Complaint: Lump on shoulder, hip pain, numbness and tingling in arms HPI: 47-year-old woman presenting with several complaints. First complaint is that she has a lump on her right shoulder is been there for about 9 months. She tried to squeeze it and scratch it and express fluid from it now it is irritated and sore. She has not seen a primary care physician for this. She is also complaining of right hip pain when she walks for the last week. Denies any falls or injuries. Is improved at rest. Worse when she walks around. No recent falls or injuries. Does not have a history of similar in the past. Finally, she is complaining of leaking the last 2 mornings with numbness in both of her forearms. She also had some associated"fire"in her left middle finger. This resolved after a few minutes. Denies any other neck pain. No other weakness during the course the day. She is not dropping any objects. No headache. No stiff neck or fever. She is currently without symptoms at this time. ROS: 10 systems were reviewed and were negative except those elements noted in the HPI. PMH: PE, on Xarelto, cholecystectomy status post bile leak Social History: No smoking, no alcohol, no recreational drug use Family History: non-contributory Physical Exam: Gen: Awake, Alert, No Distress HEENT: Nose: no rhinorrhea Eyes: PERRLA, EOMI Mouth: Moist mucosa Neck: Supple, no JVD, nontender Chest: nontender, lungs clear to auscultation Heart: S1, S2 normal, no murmur Abd: Soft, non-tender, no guarding Back: no CVA tenderness, no midline tenderness patient has a approximately 1 x 2 cm mass in the soft tissue of her right upper back. There is an overriding abrasion. There is no surrounding erythema. It is not fluctuant or pointing. Consistent with lipoma. Ext: no edema, patient has tenderness over the greater trochanter of her hip. She has full range of motion without pain. She is ambulating unassisted. There is mild inguinal tenderness but there is no fullness. No abdominal pain or tenderness. Normal lower extremity perfusion. There is no ecchymosis. No no lower extremity edema. No calf pain or tenderness. 2+ dorsalis pedis pulses. Capillary refills less than 2 sec. Skin: no rash Neuro: CN II-XII intact, Sensation grossly intact, Strength 5/5 in bilateral upper and lower extremities, she has full flexion extension strength of bilateral upper extremities. Sensations intact in the radial, median, and ulnar nerve distribution. Strength is also intact in these distributions. She has normal perfusion. - Personal History LMP (Females 10-55): Post Menopausal Current Tetanus/Diphtheria Vaccine: Yes Current Tetanus Diphtheria and Acellular Pertussis (TDAP): Yes - Medical/Surgical History Hx Asthma: No Hx Chronic Respiratory Disease: No Hx Diabetes: No Hx Cardiac Disease: No Hx Renal Disease: No Hx Cirrhosis: No Hx Alcoholism: No Hx HIV/AIDS: No Hx Splenectomy or Spleen Trauma: No Other PMH: Urethra gland removed. Shobha September 2017. pulmonary embolisms, - Social History Smoking Status: Current some day smoker Constitutional: Initial Vital Signs Temperature (C) 36.7 C 12/18/17 12:53 Heart Rate 73 12/18/17 12:53 Respiratory Rate 18 12/18/17 12:53 Blood Pressure 115/82 H 12/18/17 12:53 O2 Sat (%) 94 12/18/17 12:53 O2 Delivery Mode Room Air Allergies/Adverse Reactions: Sulfa (Sulfonamide Antibiotics) Allergy (Unknown, Verified 12/18/17 12:47) Hives Home Medications: Medication Instructions Recorded ALPRAZolam [Alprazolam] 1 mg PO TID PRN 10/08/17 Escitalopram Oxalate [Lexapro] 20 mg PO DAILY 10/08/17 Lactobacillus Acidophilus 1 each PO DAILY 10/08/17 [Probiotic] Multivitamins [Multivitamin (*)] 1 each PO DAILY 10/08/17 [place]-3 Fatty Acids [Fish Oil 1000 1,000 mg PO DAILY 10/08/17 mg (*)] Vitamin B Complex [Vitamin B 1 each PO DAILY 10/08/17 Complex (OTC)] oxyCODONE IR [Oxycodone Ir (*)] 7.5 mg PO QID 10/08/17 oxyCODONE IR [Oxycodone Ir (*)] 20 mg PO QID 10/08/17 traZODone [traZODONE 50MG (*)] 50 mg PO HS 10/08/17 oxyCODONE IR [Oxycodone Ir (*)] 10 mg PO Q4HRS PRN #60 tab 10/10/17 Promethazine HCl [Phenergan 12.5mg 12.5 mg PO Q6 PRN #10 tablet 10/15/17 tab] Xarelto 12/18/17 Medical Decision Making - Diagnostics Imaging Results: Imaging Impressions Hip X-Ray 12/18/17 13:06 Impression: Unremarkable radiographs of the right hip. ED Course/Re-evaluation: 47-year-old woman presenting with several complaints today. First is a lump on her back. She states she tried to squeeze fluid out of it which is led to the irritation. She has had this for 9 months. It is consistent with a lipoma. I do not see any evidence of abscess or cellulitis. I will refer her to General surgery for further evaluation and possible biopsy. Right hip pain. This has been going on for week. She has minimal tenderness. She has full range of motion is ambulating. X-ray is as noted. Will refer to Orthopedics for follow-up as an outpatient. There is no evidence of acute intra -abdominal process. She has normal perfusion. A soft benign abdomen. There is no fullness or masses in the inguinal canal. New Bilateral arm numbness. Patient has been waking up with this for the last 2 mornings. It is possible that she has some nerve root compression however she is completely neurologically intact at this time and symptoms go away shortly after she wakes up the last 2 days. She has not have any findings suggestive acute neurosurgical emergency at this time. Plan will be to refer her for follow up with primary care physician. If symptoms persist she may need an outpatient MRI. Departure - Departure Disposition: Home, Routine, Self-Care Clinical Impression: Lipoma, Hip pain, Paresthesia Condition: Good Instructions: Paresthesia (ED), Hip Pain (ED), Soft Tissue Mass (ED) Additional Instructions: Follow up with a general surgeon, Dr. Miramontes, to evaluate the lump in your back. Follow up with orthopedic doctor, Dr. Naranjo, to evaluate you further for your hip pain. Follow up with primary care physician if you continue to have numbness in your arms. Return to the emergency department for fevers or chills, worsening pain, worsening numbness or numbness at this not go away, or any other concerns. Referrals: Matilde Lantigua MD [Primary Care Provider] - As per Instructions Shan Naranjo MD [Medical Doctor] - As per Instructions Matilde Miramontes MD [Medical Doctor] - As per Instructions
[2017-12-18 19:11] VITALS: BP 113/71
== END 2017-12-18 14:35 | disposition home or self-care (01) ==
LOC: CED 12:22
DX: D17.21 Benign lipomatous neoplasm of skin and subcutaneous tissue of right arm (principal); M25.551 Pain in right hip; R20.2 Paresthesia of skin
CPT/HCPCS: 73502-PO

== ENCOUNTER → 2018-01-17 | Outpatient (CLI) | payer MEDICAID | LOC: CIMAGING 15:55 | PROVIDERS: ATTEND Urology | DX: R10.11 Right upper quadrant pain (principal) | CPT/HCPCS: 76770-PO; 76856-PO ==

== ENCOUNTER → 2018-06-25 | Outpatient (CLI) | payer BC | LOC: CIMAGING 13:23 | PROVIDERS: ATTEND Family Medicine | DX: Z12.31 Encounter for screening mammogram for malignant neoplasm of breast (principal) ==